=== PATIENT | male | born 1955 | race Caucasian/White ===

== ENCOUNTER 2022-05-13 06:16 | Day surgery (SDC) | payer MEDICARE ==
[~2022-05-13] VITALS: Ht 195.6 cm; Wt 78.3 kg
[2022-05-13] MEDS ORDERED: LIDOcaine 1% 30ml preserv. free vial SQ STA (06:24)
[2022-05-13 06:34] VITALS: BP 103/62
[2022-05-13] MEDS ORDERED: HYDR-3965 PO (07:06)
[2022-05-13] MEDS ORDERED: CYAN25004 SL (07:06)
[2022-05-13] MEDS ORDERED: TACR0.5C20 PO (07:06)
[2022-05-13] MEDS ORDERED: MOME13HF11 INH (07:06)
[2022-05-13] MEDS ORDERED: ASCO-157 PO (07:06)
[2022-05-13] MEDS ORDERED: LEVO200T PO (07:06)
[2022-05-13] MEDS ORDERED: PANT-47 PO (07:06)
[2022-05-13] MEDS ORDERED: CHOL20004 PO (07:06)
[2022-05-13] MEDS ORDERED: APIX5TAB3 PO (07:06)
[2022-05-13] MEDS ORDERED: ONDA-104 PO (07:06)
[2022-05-13] MEDS ORDERED: SIME125C77 PO (07:06)
[2022-05-13] MEDS ORDERED: SENN-263 PO (07:06)
[2022-05-13] MEDS ORDERED: VITA800012 (07:06)
[2022-05-13] MEDS ORDERED: PRED5TAB PO (07:06)
[2022-05-13] MEDS ORDERED: albumin 25% 100mL bottle x 1 IV PRN (07:10)
[2022-05-13 08:26] VITALS: BP 100/54
[2022-05-13 08:41] VITALS: BP 113/60
[2022-05-13 08:56] VITALS: BP 92/60
[2022-05-13 09:11] VITALS: BP 106/61
[2022-05-13 09:15] VITALS: BP 110/65
== END 2022-05-13 09:20 | disposition home or self-care (01) ==
LOC: SSTAY O 06:16
PROVIDERS: ATTEND Radiology Vascular & Interventional Radiology
DX: R18.8 Other ascites (principal); E11.40 Type 2 diabetes mellitus with diabetic neuropathy, unspecified; J44.9 Chronic obstructive pulmonary disease, unspecified; K21.9 Gastro-esophageal reflux disease without esophagitis; Z79.899 Other long term (current) drug therapy; Z98.890 Other specified postprocedural states; I73.9 Peripheral vascular disease, unspecified
CPT/HCPCS: 49083; A6258; A6449

== ENCOUNTER 2022-05-22 07:32 | Day surgery (SDC) | payer MEDICARE ==
[2022-05-22] VITALS (9 sets, daily range): BP systolic 100–124; BP diastolic 41–67
[~2022-05-22] VITALS: Ht 195.6 cm; Wt 78.1 kg
[~2022-05-22 07:32] MED LIST: APIX5TAB3 PO; ASCO-157 PO; CHOL20004 PO; CYAN25004 SL; HYDR-3965 PO; LEVO200T PO; MOME13HF11 INH; ONDA-104 PO; PANT-47 PO; PRED5TAB PO; SENN-263 PO; SIME125C77 PO; TACR0.5C20 PO; VITA800012
[2022-05-22] MEDS ORDERED: LIDOcaine 1% 30ml preserv. free vial SQ STA (07:37)
[2022-05-22] MEDS ORDERED: ALB0.5UD IH (07:54)
[2022-05-22] MEDS ORDERED: albumin 25% 100mL bottle x 1 IV PRN (07:55)
[2022-05-22] MEDS ORDERED: pneumococcal 23-VAL P-sac vacc 25 mcg/0.5ml vial IMVAC ONE (10:00)
[2022-05-22] MEDS ORDERED: ondansetron 4mg rapidly disintigrating tab PO STA (10:12)
--- NOTE | 2022-05-22 10:12 | NUR ---
Pt began vomiting. Verbal orders from Victorino to go ahead and give Zofran 4mg ODT. Awaiting pharmacy to bring it down.
== END 2022-05-22 11:45 | disposition home or self-care (01) ==
LOC: SSTAY O 07:32
PROVIDERS: ATTEND Radiology Vascular & Interventional Radiology
DX: R18.8 Other ascites (principal); E11.40 Type 2 diabetes mellitus with diabetic neuropathy, unspecified; I73.9 Peripheral vascular disease, unspecified; J44.9 Chronic obstructive pulmonary disease, unspecified; K21.9 Gastro-esophageal reflux disease without esophagitis; Z23 Encounter for immunization
CPT/HCPCS: 49083; 90732; G0009; J3490; P9047; A6258; A6402